=== PATIENT | female | born 1990 | race African-American/Black ===

== ENCOUNTER 2017-07-11 03:09 | Inpatient (IN) ==
[2017-07-11 03:53] LABS: Apearance,Urine Slightly Hazy (Clear); Bacteria,Urine Moderate /HPF (Few); Bilirubin,Urine Negative (Negative); Blood, Urine Negative (Negative); Glucose,Urine (UA) Negative (Negative); Ketones,Urine Negative (Negative); Nitrite,Urine Negative (Negative); Protein,Urine Negative; RBC,Urine 1 /HPF (0-4); Squamous Epithelial Cell,Urine Occasional /HPF (0-10); Urine Color Straw (Yellow); Urine Specific Gravity 1.003 (1.001-1.035); Urine Urobilinogen < 2.0 EU/DL (0.2-1.0); WBC,Urine 4 /HPF (0-6)
[2017-07-11] MEDS ORDERED: MEPERIDINE 50 MG/1 ML VIAL IM PRN (04:24)
[2017-07-11] MEDS ORDERED: BUTORPHANOL 2 MG/ML VIAL IV PRN (04:24)
[2017-07-11] MEDS: LACTATED RINGERS 1,000 ML IV SCH ×3 (05:00→09:15)
[2017-07-11] MEDS ORDERED: MEPERIDINE 50 MG/1 ML VIAL IV PRN (05:05)
[2017-07-11 05:42] LABS: Basophils % 0.2 % (0.0-0.8); Eosinophils % 0.4 % (0.00-10.9); Hemoglobin 11.4 GM/DL (12.0-16.0); Immature Granulocytes % 0.9 %; Immature Granulocytes Absolute 0.04 #; Lymphocytes # 1.4 10*3/uL (1.4-4.0); Lymphocytes % 30.8 % (21.3-54.2); Mean Corpuscular HGB Conc 34.5 GM/DL (32-36); Mean Corpuscular Hemoglobin 30 PG (27-34); Mean Corpuscular Volume 87.3 FL (87-102); Monocytes # 0.3 10*3/uL (0.11-0.8); Monocytes % 7.4 % (1.7-12.7); Neutrophils # 2.7 10*3/uL (1.4-7.4); Neutrophils % 60.3 % (38.7-73.9); Platelet Count 164 T/CUMM (130-400); Red Blood Count 3.78 MC/CUMM (3.8-5.5); Red Cell Distribution Width 12.9 % (9.3-17.3); White Blood Count 4.5 T/CUMM (4-12)
[2017-07-11 05:57] LABS: Albumin 3.1 G/DL (3.4-5.0); Bilirubin,Total 0.7 MG/DL (0.2-1.0); Calcium 8.6 MG/DL (8.5-10.1); Osmolality,Calculated 269.8 MOS/KG (273-304); Potassium 3.4 MMOL/L (3.5-5.1); Total Protein 6.7 G/DL (6.4-8.3)
[2017-07-11] MEDS ORDERED: FAMOTIDINE 20 MG/2 ML VIAL IV ONE (06:07)
[2017-07-11] MEDS ORDERED: TERBUTALINE 1 MG/1 ML VIAL SUBCUT ONE (06:07)
[2017-07-11] MEDS ORDERED: ePHEDrine 50 MG/ML AMP IV PRN (06:08)
[2017-07-11] MEDS: CITRIC ACID/SODIUM CITRATE 30 ML UDCUP PO ONE ×2 (06:19→07:14)
[2017-07-11] MEDS ORDERED: fentaNYL 2 MCG/ROPIV 0.2% EPID 150 ML EPIDURAL SCH (06:30)
[2017-07-11] MEDS: ONDANSETRON 4 MG/2 ML VIAL IV PRN ×2 (07:30→10:20)
[2017-07-11] MEDS ORDERED: OXYTOCIN/LR 20 UNIT/1,000 ML BAG IV SCH (08:00)
[2017-07-11 08:10] LABS: Barbiturates Screen,Urine Negative (Negative); Benzodiazepines Screen,Urine Negative (Negative); Cannabinoid Screen,Urine Negative (Negative); Opiate Screen,Urine Negative (Negative); Phencyclidine Screen,Urine Negative (Negative)
[2017-07-11 10:34] LABS: Apearance,Urine Slightly Hazy (Clear); Bilirubin,Urine Negative (Negative); Blood, Urine Small mg/dL (Negative); Glucose,Urine (UA) Negative (Negative); Ketones,Urine Negative (Negative); Mucus,Urine Few /LPF (Occasional); Nitrite,Urine Negative (Negative); Protein,Urine Negative; RBC,Urine 8 /HPF (0-4); Squamous Epithelial Cell,Urine Occasional /HPF (0-10); Urine Color Yellow (Yellow); Urine Specific Gravity 1.014 (1.001-1.035); Urine Urobilinogen < 2.0 EU/DL (0.2-1.0); WBC,Urine 5 /HPF (0-6)
[2017-07-11] MEDS ORDERED: ePHEDrine 50 MG/ML AMP IV ONE (10:44)
[2017-07-11 13:10] LABS: Cord Arterial Blood HCO3 27.5 MMOL/L
[2017-07-11 13:15] LABS: Cord Venous Blood HCO3 23.5 MMOL/L; Cord Venous Blood PCO2 44.7 MMHG; Cord Venous Blood PO2 30.5 MMHG
[2017-07-11] MEDS ORDERED: ACETAMINOPHEN 500 MG TABLET PO PRN (13:30)
[2017-07-11] MEDS ORDERED: OXYTOCIN/LR 20 UNIT/1,000 ML BAG IV ONE (16:00)
[2017-07-11] MEDS ORDERED: diphenhydrAMINE 50 MG/1 ML VIAL IV ONE (16:10)
[2017-07-11] MEDS ORDERED: diphenhydrAMINE 50 MG/1 ML VIAL ONE (16:10)
[2017-07-11] MEDS ORDERED: WITCH HAZEL PADS 100/JAR TOP PRN (16:25)
[2017-07-11] MEDS ORDERED: BISACODYL 10 MG SUPP RECTAL PRN (16:25)
[2017-07-11] MEDS ORDERED: DIPH/TET/ACEL PERT BOOSTER VACCINE 0.5 ML VIAL IM ONE (16:25)
[2017-07-11] MEDS ORDERED: LANOLIN 50% CREAM 0.3 OZ TUBE TOP PRN (16:25)
[2017-07-11] MEDS ORDERED: oxyCODONE/ACETAMINOPHEN 5-325 MG TABLET PO PRN ×2 (16:25)
[2017-07-11] MEDS ORDERED: MEASLES/MUMPS/RUBELLA VACCINE 0.5 ML VIAL SUBCUT ONE (16:25)
[2017-07-11] MEDS ORDERED: BENZOCAINE 20%/MENTHOL 0.5% SPRAY 56 GM CAN TOP PRN (16:25)
[2017-07-11] MEDS ORDERED: RHO(D) IMMUNE GLOBULIN 300 MCG SYRINGE IM ONE (16:25)
[2017-07-11] MEDS ORDERED: HYDROCORTISONE 2.5% RECTAL CREAM 30 GM TUBE TOP PRN (16:25)
[2017-07-11] MEDS ORDERED: ACETAMINOPHEN 325 MG TABLET PO PRN (16:25)
[2017-07-11] MEDS: IBUPROFEN 800 MG TABLET PO PRN (18:00)
[2017-07-11] MEDS: ACETAMINOPHEN/CODEINE 300-30 MG TABLET PO PRN (20:41)
[2017-07-11] MEDS: DOCUSATE SODIUM 100 MG CAPSULE PO SCH (20:41)
[2017-07-12] MEDS: IBUPROFEN 800 MG TABLET PO PRN ×3 (02:47→22:57)
[2017-07-12 04:29] LABS: Basophils % 0.2 % (0.0-0.8); Eosinophils % 0.4 % (0.00-10.9); Hematocrit 25.7 VOL% (35.7-47.0); Hemoglobin 8.8 GM/DL (12.0-16.0); Immature Granulocytes % 0.7 %; Immature Granulocytes Absolute 0.04 #; Lymphocytes # 1.5 10*3/uL (1.4-4.0); Lymphocytes % 27.5 % (21.3-54.2); Mean Corpuscular HGB Conc 34.2 GM/DL (32-36); Mean Corpuscular Hemoglobin 30 PG (27-34); Mean Corpuscular Volume 88.3 FL (87-102); Mean Platelet Volume 9.8 FL (9.6-12.0); Monocytes # 0.4 10*3/uL (0.11-0.8); Monocytes % 7.2 % (1.7-12.7); Neutrophils # 3.6 10*3/uL (1.4-7.4); Platelet Count 116 T/CUMM (130-400); Red Blood Count 2.91 MC/CUMM (3.8-5.5); Red Cell Distribution Width 12.8 % (9.3-17.3); White Blood Count 5.6 T/CUMM (4-12)
[2017-07-12] MEDS: ONDANSETRON 4 MG/2 ML VIAL IV PRN (05:55)
[2017-07-12] MEDS: FERROUS SULFATE 325 MG TABLET PO SCH ×2 (08:34→21:48)
[2017-07-12] MEDS ORDERED: IRON (CARBONYL) 45 MG TABLET PO SCH (09:00)
[2017-07-12] MEDS: DOCUSATE SODIUM 100 MG CAPSULE PO SCH ×2 (10:08→21:48)
[2017-07-13] MEDS: DOCUSATE SODIUM 100 MG CAPSULE PO SCH (09:12)
[2017-07-13] MEDS: FERROUS SULFATE 325 MG TABLET PO SCH (09:12)
[2017-07-13 11:37] VITALS: BP 119/71
[2017-07-13] MEDS: ACETAMINOPHEN/CODEINE 300-30 MG TABLET PO PRN (11:49)
== END 2017-07-13 14:30 | disposition home or self-care (01) | DRG 560 ==
LOC: N.LDOUT 03:09 → N.LD 03:11 → N.OB 16:01
PROVIDERS: ADMIT Obstetrics & Gynecology; ATTEND Obstetrics & Gynecology

== ENCOUNTER 2020-04-03 06:26 | Inpatient (IN) ==
[2020-04-03] MEDS ORDERED: LACTATED RINGERS 1,000 ML IV ONE (06:51)
[2020-04-03] MEDS ORDERED: ONDANSETRON 4 MG/2 ML VIAL IV PRN ×2 (07:01→10:54)
[2020-04-03] MEDS ORDERED: BUTORPHANOL 2 MG/ML VIAL IV PRN (07:01)
[2020-04-03] MEDS ORDERED: MEPERIDINE 50 MG/1 ML VIAL IV PRN (07:01)
[2020-04-03] MEDS ORDERED: FAMOTIDINE 20 MG/2 ML VIAL IV ONE (07:11)
[2020-04-03] MEDS ORDERED: diphenhydrAMINE 50 MG/1 ML VIAL IV PRN (07:11)
[2020-04-03] MEDS ORDERED: PROMETHAZINE 25 MG/1 ML VIAL IM PRN (07:11)
[2020-04-03] MEDS ORDERED: ePHEDrine 50 MG/ML VIAL IV PRN (07:11)
[2020-04-03] MEDS ORDERED: LACTATED RINGERS 250 ML IV PRN (07:11)
[2020-04-03] MEDS ORDERED: NALOXONE 0.4 MG/ML VIAL IV PRN (07:11)
[2020-04-03] MEDS ORDERED: CITRIC ACID/SODIUM CITRATE 30 ML UDCUP PO ONE (07:11)
[2020-04-03] MEDS ORDERED: hydrOXYzine HCL 25 MG/1 ML VIAL IM PRN (07:11)
[2020-04-03] MEDS ORDERED: TERBUTALINE 1 MG/1 ML VIAL SUBCUT ONE (07:20)
[2020-04-03 07:30] LABS: Basophils % 0.3 % (0.0-0.8); Eosinophils % 0.4 % (0.00-10.9); Hematocrit 31.2 VOL% (35.7-47.0); Hemoglobin 10.5 GM/DL (12.0-16.0); Immature Granulocytes % 0.4 %; Immature Granulocytes Absolute 0.03 #; Lymphocytes % 24.6 % (21.3-54.2); Mean Corpuscular HGB Conc 33.7 GM/DL (32-36); Mean Corpuscular Volume 85.7 FL (87-102); Mean Platelet Volume 10.3 FL (9.6-12.0); Monocytes % 6.7 % (1.7-12.7); Neutrophils % 67.6 % (38.7-73.9); Platelet Count 186 T/CUMM (130-400); Red Blood Count 3.64 MC/CUMM (3.8-5.5); White Blood Count 7.9 T/CUMM (4-12)
[2020-04-03] MEDS ORDERED: fentaNYL 2 MCG/ROPIV 0.2% EPID 100 ML EPIDURAL SCH (07:30)
[2020-04-03] MEDS ORDERED: LACTATED RINGERS 1,000 ML IV SCH ×3 (07:30→11:00)
[2020-04-03] MEDS ORDERED: OXYTOCIN/LR 30 UNIT/1,000 ML BAG IV ONE (07:31)
[2020-04-03] MEDS ORDERED: OXYTOCIN 10 UNIT/ML VIAL IM ONE (07:31)
[2020-04-03] MEDS ORDERED: ceFAZolin 2,000 MG in PREMIX 1 EACH IV ONE (07:39)
[2020-04-03] MEDS ORDERED: MORPHINE 10 MG/10 ML VIAL ONE (08:02)
[2020-04-03] MEDS ORDERED: PHENYLEPHRINE 1 MG/10 ML SYRINGE IV ONE (08:02)
[2020-04-03] MEDS ORDERED: BUPIVACAINE SPINAL 0.75% 2 ML AMP SPINAL ONE (08:02)
[2020-04-03] MEDS ORDERED: fentaNYL 100 MCG/2 ML VIAL ONE (08:03)
[2020-04-03 09:03] LABS: Cord Arterial Blood HCO3 21.7 MMOL/L; Cord Venous Blood HCO3 23.1 MMOL/L; Cord Venous Blood PCO2 39.3 MMHG; Cord Venous Blood PO2 33.8 MMHG
[2020-04-03 10:23] LABS: Alanine Aminotransferase 12 U/L (13-56); Albumin 2.6 G/DL (3.4-5.0); Alkaline Phosphatase 111 U/L (45-117); Aspartate Amino Transferase 16 U/L (0-37); Bilirubin,Total < 0.39 MG/DL (0.2-1.0); Blood Urea Nitrogen 6 MG/DL (7-18); Calcium 8.5 MG/DL (8.5-10.1); Estimated Glom Filtration Rate 169 ML/MIN; Glucose 89 MG/DL (74-106); Total Protein 6.5 G/DL (6.4-8.3)
[2020-04-03] MEDS ORDERED: SIMETHICONE CHEW 80 MG TABLET PO PRN (10:54)
[2020-04-03] MEDS ORDERED: ACETAMINOPHEN 325 MG TABLET PO PRN (10:54)
[2020-04-03] MEDS ORDERED: OXYTOCIN/LR 20 UNIT/1,000 ML BAG IV ONE (10:54)
[2020-04-03] MEDS ORDERED: RHO(D) IMMUNE GLOBULIN 300 MCG SYRINGE IM ONE (10:54)
[2020-04-03 11:28] LABS: Bacteria,Urine Occasional /HPF (Few); Bilirubin,Urine Negative (Negative); Blood, Urine Negative (Negative); Glucose,Urine (UA) Negative (Negative); Ketones,Urine 20 mg/dL (Negative); Mucus,Urine Many /LPF (Occasional); Nitrite,Urine Negative (Negative); Protein,Urine 30 MG/DL; RBC,Urine 1 /HPF (0-4); Squamous Epithelial Cell,Urine Occasional /HPF (0-10); Urine Appearance CLEAR (Clear); Urine Color Amber (Yellow); Urine Specific Gravity 1.026 (1.001-1.035); WBC,Urine 2 /HPF (0-6)
[2020-04-03] MEDS: ceFAZolin 1,000 MG in SYRINGE 1 EACH IV SCH ×2 (16:15→23:05)
[2020-04-03 17:21] LABS: Basophils % 0.1 % (0.0-0.8); Eosinophils % 0.1 % (0.00-10.9); Hemoglobin 9.7 GM/DL (12.0-16.0); Immature Granulocytes % 0.4 %; Immature Granulocytes Absolute 0.03 #; Lymphocytes # 1.7 10*3/uL (1.4-4.0); Lymphocytes % 20.8 % (21.3-54.2); Mean Corpuscular HGB Conc 33.4 GM/DL (32-36); Mean Corpuscular Volume 86.3 FL (87-102); Mean Platelet Volume 9.9 FL (9.6-12.0); Monocytes % 6.1 % (1.7-12.7); Neutrophils % 72.5 % (38.7-73.9); Platelet Count 175 T/CUMM (130-400); Red Blood Count 3.36 MC/CUMM (3.8-5.5); Red Cell Distribution Width 12.9 % (9.3-17.3)
[2020-04-03] MEDS: DOCUSATE SODIUM 100 MG CAPSULE PO SCH (20:06)
[2020-04-03] MEDS: IBUPROFEN 800 MG TABLET PO PRN (20:06)
[2020-04-04 05:12] LABS: Basophils % 0.1 % (0.0-0.8); Eosinophils # 0.1 10*3/uL (0.0-0.87); Eosinophils % 0.6 % (0.00-10.9); Hematocrit 30.3 VOL% (35.7-47.0); Immature Granulocytes % 0.7 %; Immature Granulocytes Absolute 0.06 #; Lymphocytes # 1.9 10*3/uL (1.4-4.0); Lymphocytes % 23.1 % (21.3-54.2); Mean Corpuscular Volume 87.1 FL (87-102); Mean Platelet Volume 9.9 FL (9.6-12.0); Monocytes % 7.6 % (1.7-12.7); Neutrophils % 67.9 % (38.7-73.9); Platelet Count 169 T/CUMM (130-400); Red Blood Count 3.48 MC/CUMM (3.8-5.5); Red Cell Distribution Width 13.1 % (9.3-17.3); White Blood Count 8.2 T/CUMM (4-12)
[2020-04-04] MEDS: IBUPROFEN 800 MG TABLET PO PRN ×2 (06:11→16:49)
[2020-04-04] MEDS: METOCLOPRAMIDE 10 MG TABLET PO PRN ×2 (08:51→16:50)
[2020-04-04] MEDS: DOCUSATE SODIUM 100 MG CAPSULE PO SCH ×2 (08:52→20:35)
[2020-04-04] MEDS: MAGNESIUM HYDROXIDE SUSP 30 ML UDCUP PO PRN ×2 (08:54→20:35)
[2020-04-04] MEDS: MULTIVITAMIN (PRENATAL) TABLET PO SCH (08:54)
[2020-04-04] MEDS: oxyCODONE/ACETAMINOPHEN 5-325 MG TABLET PO PRN (17:57)
[2020-04-05] MEDS: METOCLOPRAMIDE 10 MG TABLET PO PRN ×2 (00:34→08:00)
[2020-04-05] MEDS: oxyCODONE/ACETAMINOPHEN 5-325 MG TABLET PO PRN ×2 (00:35→08:42)
[2020-04-05] MEDS: IBUPROFEN 800 MG TABLET PO PRN (05:01)
[2020-04-05 08:09] VITALS: BP 118/51
[2020-04-05] MEDS: DOCUSATE SODIUM 100 MG CAPSULE PO SCH (08:35)
[2020-04-05] MEDS: MULTIVITAMIN (PRENATAL) TABLET PO SCH (08:35)
[2020-04-05] MEDS ORDERED: ONDANSETRON 4 MG TABLET PO ONE (11:23)
== END 2020-04-05 13:15 | disposition home or self-care (01) | DRG 788 ==
LOC: N.LDOUT 06:26 → N.LD 06:27 → N.OB 15:21
PROVIDERS: ADMIT Obstetrics & Gynecology; ATTEND Obstetrics & Gynecology
PROC: LDCSECT (ICD-10-PCS; 2020-04-03 08:00)